=== PATIENT | male | born 1960 | race Caucasian/White ===

== ENCOUNTER 2022-10-27 18:21 | Emergency (ER) | payer BC, OTHER ==
[~2022-10-27] VITALS: Ht 180.3 cm; Wt 77.1 kg
--- NOTE | 2022-10-27 18:39 | NUR ---
[email or web address], medical screening exam in progress. Patient is AOx4 but can not recall the exact dosages of his home medicines at this time. is coming to ER.
--- NOTE | 2022-10-27 18:39 | NUR ---
Note [email or web address] in ED - 10/27/22 at 1852 by GÉNESIS Patient is AOx4 but can not recall exact dosages of his home medicines at this time. is coming to ER.
[2022-10-27] MEDS ORDERED: FINA1TAB11 PO (19:01)
[2022-10-27] MEDS ORDERED: ASPI81TA31 PO (19:01)
[2022-10-27] MEDS ORDERED: VIBE75TA PO (19:01)
--- NOTE | 2022-10-27 19:11 | NUR ---
62 years old male with history of muscular distrophy presents to er by ambulance after fall, c/o headache with right forehead hematoma no loc awaiting for head ct, cold pack applied to hematoma, report given to incoming RN all questions answered.
[2022-10-27] MEDS ORDERED: OXYCODONE/APAP 5-325 MG TABLET ONE (19:22)
[2022-10-27] MEDS ORDERED: ONDANSETRON ODT 4 MG TAB.RAPDIS ONE (19:22)
[2022-10-27] MEDS ORDERED: ONDANSETRON HCL 4 MG TABLET PO ONE (19:30)
[2022-10-27] MEDS ORDERED: OXYCODONE/APAP 5-325 MG TABLET PO ONE (19:30)
--- NOTE | 2022-10-27 19:36 | NUR ---
SBAR FROM AM SHIFT RN
[2022-10-27] MEDS ORDERED: HYDR-3972 PO (20:10)
[2022-10-27] MEDS ORDERED: ONDA4TAB5 PO (20:10)
--- NOTE | 2022-10-27 20:42 | NUR ---
Patient discharged to home in stable condition. Written and verbal after care instructions given. Patient verbalizes understanding of instructions. Stressed follow up or return to ER for worsening s/s. patient is a/ox4, NAD noted. patient is able to walk with a cane, accompanied by his
[2022-10-27 20:43] VITALS: BP 115/78
== END 2022-10-27 20:43 | disposition home or self-care (01) ==
LOC: ER 18:24
DX: S09.90XA Unspecified injury of head, initial encounter (principal); S00.03XA Contusion of scalp, initial encounter; S20.219A Contusion of unspecified front wall of thorax, initial encounter; W18.39XA Other fall on same level, initial encounter; Y93.01 Activity, walking, marching and hiking; Y92.89 Other specified places as the place of occurrence of the external cause; G71.00 Muscular dystrophy, unspecified
CPT/HCPCS: 70450; 71101; A4663; Q0162

== ENCOUNTER 2023-09-09 09:51 | Emergency (ER) | payer BC ==
[~2023-09-09] VITALS: Ht 180.3 cm; Wt 78.5 kg
[~2023-09-09 09:51] MED LIST: ASPI81TA31 PO; FINA1TAB11 PO; HYDR-3972 PO; ONDA4TAB5 PO; VIBE75TA PO
[2023-09-09 10:02] VITALS: O2SAT 99
[2023-09-09 10:30] LABS: BASOPHILS % (AUTO) 0.5 % (0.0-2.0); EOSINOPHILS % (AUTO) 0.5 % (0.0-7.0); HEMATOCRIT 43.4 % (36.7-47.1); HEMOGLOBIN 14.5 g/dL (12.5-16.3); LYMPHOCYTES # (AUTO) 0.8 K/uL (0.8-4.8); LYMPHOCYTES % (AUTO) 13.4 % (20.5-51.5); MEAN CORPUSCULAR HEMOGLOBIN 32.1 uug (23.8-33.4); MEAN CORPUSCULAR HGB CONC 33 g/dL (32.5-36.3); MEAN CORPUSCULAR VOLUME 96.3 fL (73.0-96.2); MONOCYTES # (AUTO) 0.4 K/uL (0.1-1.30); MONOCYTES % (AUTO) 6.3 % (0.0-11.0); NEUTROPHILS # (AUTO) 4.8 K/uL (1.8-8.9); NEUTROPHILS % (AUTO) 79.3 % (38.5-71.5); PLATELET COUNT (AUTO) 297 K/uL (152-348); RED BLOOD CELL COUNT(AUTO) 4.51 MIL/uL (4.06-5.63); RED CELL DISTRIBUTION WIDTH 13.3 % (12.1-16.2); WHITE BLOOD COUNT (AUTO) 6.1 K/uL (3.6-10.2)
[2023-09-09 10:43] LABS: CARBON DIOXIDE 32 mmol/L (21-32); CHLORIDE 106 mmol/L (98-107); CREATININE 0.4 mg/dL (0.6-1.3); GLUCOSE 103 mg/dL (74-106); POTASSIUM 4.8 mmol/L (3.5-5.1); SODIUM SERUM 141 mmol/L (136-145); UREA NITROGEN, BLOOD 13 mg/dL (7-18)
[2023-09-09 10:44] LABS: DIFFERENTIAL COMMENT 1
[2023-09-09 10:50] LABS: ALANINE AMINOTRANSFERASE 30 U/L (16-63); ALBUMIN 3.4 g/dL (3.4-5.0); ALKALINE PHOSPHATASE 61 U/L (50-136); ASPARTATE AMINOTRANSFERASE 17 U/L (15-37); BILIRUBIN,TOTAL 0.6 mg/dL (0.2-1.0); TOTAL PROTEIN, SERUM 7.2 g/dL (6.4-8.2)
[2023-09-09] MEDS ORDERED: HYDROCODONE/APAP 5-325MG TABLET PO ONE (11:00)
[2023-09-09] MEDS ORDERED: HYDROCODONE/APAP 5-325MG TABLET ONE (11:02)
[2023-09-09] MEDS ORDERED: LIDOCAINE 5% PATCH TD ONE ×3 (11:10→12:30)
== END 2023-09-09 13:09 | disposition home or self-care (01) ==
LOC: ER 09:51
DX: M19.031 Primary osteoarthritis, right wrist (principal); E78.00 Pure hypercholesterolemia, unspecified; Z79.899 Other long term (current) drug therapy
CPT/HCPCS: 36415; 73110; 73200; 84550; 85025; A4606; A4663